=== PATIENT | female | born 1985 | race Caucasian/White ===

== ENCOUNTER 2023-04-03 19:55 | Emergency (ER) | payer BC | END 2023-04-03 21:54 | disposition home or self-care (01) | LOC: JP.ED 19:55 → EDBD 19:55 → JP.ED 21:54 | DX: K08.89 Other specified disorders of teeth and supporting structures (principal); F17.210 Nicotine dependence, cigarettes, uncomplicated; Z88.2 Allergy status to sulfonamides; Z88.5 Allergy status to narcotic agent; Z91.040 Latex allergy status | CPT/HCPCS: 99282 ==